=== PATIENT | female | born 1965 | race Caucasian/White ===

== ENCOUNTER 2018-10-18 20:01 | Emergency (ER) | payer OTHER ==
[~2018-10-18] VITALS: Ht 160 cm; Wt 49.9 kg
[2018-10-18 20:07] VITALS: Ht 160 cm; Wt 49.9 kg
[2018-10-18 22:30] VITALS: BP 135/93
== END 2018-10-18 22:30 | disposition home or self-care (01) ==
LOC: ED 20:01
DX: S16.1XXA Strain of muscle, fascia and tendon at neck level, initial encounter (principal); S00.03XA Contusion of scalp, initial encounter; Z98.890 Other specified postprocedural states; V49.88XA Car occupant (driver) (passenger) injured in other specified transport accidents, initial encounter; Y93.89 Activity, other specified; Y92.89 Other specified places as the place of occurrence of the external cause; Y99.8 Other external cause status